=== PATIENT | female | born 1970 | race Two or more races ===

== ENCOUNTER 2018-05-04 15:53 | Emergency (ER) | payer OTHER ==
[~2018-05-04] VITALS: Ht 160 cm; Wt 97.5 kg
[~2018-05-04 15:53] MED LIST: AMOX1TAB5 PO; LEVSIN/SL0.125 MG PO; PROTONIX40 MG PO
[2018-05-04] MEDS ORDERED: SYNTHROID50 MCG (16:13)
== END 2018-05-04 19:28 | disposition home or self-care (01) ==
LOC: ER 15:53
DX: S93.402A Sprain of unspecified ligament of left ankle, initial encounter (principal); S80.01XA Contusion of right knee, initial encounter; W18.39XA Other fall on same level, initial encounter; Y93.89 Activity, other specified; Y92.69 Other specified industrial and construction area as the place of occurrence of the external cause; Y99.8 Other external cause status

== ENCOUNTER → 2020-03-22 | Emergency (ER) | payer OTHER ==
[~2020-03-22] VITALS: Ht 170.2 cm; Wt 99.8 kg
[~2020-03-22] MED LIST changes: +ANASTROZOLE1 MG; +CALTRATE 600 +1 EACH; +FISH OIL + D31 EACH; +GLUCOPHAGE XR750 MG; +SYNTHROID50 MCG
== END | disposition left against medical advice (07) ==
LOC: ER 11:21
DX: U07.1 COVID-19 (principal); J12.89 Other viral pneumonia

== ENCOUNTER 2021-02-11 11:23 | Day surgery (SDC) | payer OTHER ==
[~2021-02-11 11:23] MED LIST changes: +BIOTIN PO; +CALTRATE PO; +FENOF PO; +TAMOXIFEN CITRA20 MG PO; +VENLAFAXINE HCL75 M2 PO; +XIGDUO PO
== END 2021-02-11 18:30 | disposition home or self-care (01) ==
LOC: CIR.AMB 11:23 → U 11:23 → CIR.AMB 18:30
PROVIDERS: ATTEND Obstetrics & Gynecology
DX: N84.0 Polyp of corpus uteri (principal); Z20.822 Contact with and (suspected) exposure to COVID-19

== ENCOUNTER 2021-05-13 08:00 | Outpatient (CLI) | payer OTHER | END 2021-05-13 08:30 | disposition home or self-care (01) | LOC: PPH VACUNA 08:00 | DX: Z23 Encounter for immunization (principal) ==

== ENCOUNTER 2021-08-10 17:42 | Outpatient (CLI) | payer OTHER | END 2021-08-10 17:43 | disposition home or self-care (01) | LOC: RAD 17:42 | PROVIDERS: ATTEND Orthopaedic Surgery | DX: M25.571 Pain in right ankle and joints of right foot (principal); M79.641 Pain in right hand ==

== ENCOUNTER 2024-08-25 19:36 | Emergency (ER) | payer OTHER ==
[~2024-08-25] VITALS: Ht 160 cm; Wt 97.5 kg
[~2024-08-25 19:36] MED LIST changes: +ATORVASTATIN CA10 MG PO
[2024-08-25] MEDS ORDERED: FAMOtidine 10 MG/ML (4ML VIAL) IV ONE (23:45)
[2024-08-25] MEDS ORDERED: MEPERIDINE HCL/PF 50 MG/ML VIAL IM ONE (23:45)
== END 2024-08-26 02:30 | disposition home or self-care (01) ==
LOC: ER 19:38
DX: S50.12XA Contusion of left forearm, initial encounter (principal); W19.XXXA Unspecified fall, initial encounter; Y93.89 Activity, other specified; Y92.89 Other specified places as the place of occurrence of the external cause; Y99.9 Unspecified external cause status; Z88.6 Allergy status to analgesic agent; Z88.8 Allergy status to other drugs, medicaments and biological substances

== ENCOUNTER 2024-08-31 10:22 | Outpatient (CLI) | payer OTHER | END 2024-08-31 10:25 | disposition home or self-care (01) | LOC: RAD 10:22 | PROVIDERS: ATTEND Orthopaedic Surgery | DX: S52.532A Colles' fracture of left radius, initial encounter for closed fracture (principal) ==

== ENCOUNTER 2024-10-17 13:40 | Outpatient (CLI) | payer OTHER | END 2024-10-17 13:45 | disposition home or self-care (01) | LOC: RAD 13:40 | PROVIDERS: ATTEND Orthopaedic Surgery | DX: M25.532 Pain in left wrist (principal); S52.532D Colles' fracture of left radius, subsequent encounter for closed fracture with routine healing; X58.XXXD Exposure to other specified factors, subsequent encounter ==

== ENCOUNTER 2024-10-30 10:39 | Outpatient (CLI) | payer OTHER | END 2024-10-30 10:49 | disposition home or self-care (01) | LOC: TOM 10:39 | PROVIDERS: ATTEND Orthopaedic Surgery | DX: M25.532 Pain in left wrist (principal) ==